=== PATIENT | male | born 1955 | race Caucasian/White ===

== ENCOUNTER → 2016-11-10 | Day surgery (SDC) | payer BC ==
[~2016-11-10] MED LIST: ACETAMINOPHEN 1000 MG/100 ML VIAL IV ONE; BUPIVACAINE/EPINEPHRINE 0.25% PF 10 ML VIAL ONE; KETOROLAC TROMETHAMINE 30 MG/ML (IVP) VIAL IV PUSH ONE; LACTATED RINGER'S 1000 ML INJ 1,000 ML ONE; LIDOCAINE 1.5%/EPINEPHrine 1:200,000 PF SOLN 30 ML AMP ONE; MIDAZOLAM HCL 2 MG/2 ML VIAL ONE; ONDANSETRON HCL 4 MG/2 ML VIAL IV PUSH ONE; PROPOFOL 200 MG/20 ML AMP IV ONE; SODIUM CHLORIDE 0.9% 250 ML ADDBAG IV ONE; SODIUM CHLORIDE 0.9% INJ 10 ML ONE; VANCOMYCIN HCL 1000 MG VIAL ONE; ceFAZolin INJ 1,000 MG VIAL ONE
--- NOTE | 2016-11-10 10:11 | MP ---
cc: ELINA REYES M.D. [facility] DATE OF SURGERY: 11/10/2016 PROCEDURE Right inguinal hernia repair with mesh. PREOPERATIVE DIAGNOSIS Symptomatic reducible right inguinal hernia. POSTOPERATIVE DIAGNOSIS Symptomatic indirect reducible right inguinal hernia. ANESTHESIA LMA. SURGEON Dr. Reyes. ESTIMATED BLOOD LOSS Less than 30 mL. FLUIDS 700 mL crystalloid. COMPLICATIONS None. DRAINS None. SPECIMEN None. PROCEDURE IN DETAIL The patient was seen in the holding area and the right side marked by the undersigned and confirmed by the patient. The patient was taken back to the operating room and placed on the operating table in the supine position. After an adequate level of laryngeal mask anesthesia was achieved, the right groin was shaved, prepped and draped. Time-out was taken confirming the correct patient, site and procedure to be performed. Skin and subcutaneous tissue was infiltrated with local anesthetic and an oblique incision made in the right groin. Dissection was carried down to the external oblique fascia where further subfascial injections were made with local anesthetic. The underlying tissue was swept free from the fascia and the spermatic cord structures were brought up on a [place] drain. Dissection was carried back to the internal ring. The hernia sac was reduced into the abdominal cavity. At this point the patient was noted to have simply an indirect inguinal hernia. The patient had a 3 x 6 inch piece of [employer] mesh brought up and placed into the defect. The mesh was transfixed to the pubic tubercle with 2-0 Prolene suture which was then run along the shelving edge of the inguinal ligament to complete the lateral edge of the repair. The mesh was slit longitudinally and trimmed to size to fit the defect. The mesh was then transfixed with interrupted 2-0 Prolene sutures medially. Care was taken to avoid the iliohypogastric nerve and place no sutures near this. When this was completed the medial leaf of mesh was brought over the lateral leaf and fixed at three places with 2-0 Prolene sutures. With hemostasis assured, the remaining local anesthetic including Marcaine with epinephrine was injected into the transversalis fascia and subcutaneous tissues. The external oblique fascia was closed with a running 3-0 Vicryl suture. The wound was reapproximated with interrupted 3-0 Vicryl suture and the skin closed with 5-0 PDS in a running subcuticular fashion. The wound was dressed with Telfa and Tegaderm. The patient was taken back to the recovery room in stable condition. He tolerated the procedure well. Sponge and needle and instrument counts were reported to be correct. MD МАРИНА Kirby/TLL /9:53 AM /10:03 AM
== END | disposition home or self-care (01) ==
LOC: ESDC 06:35
PROVIDERS: ATTEND Surgery Trauma Surgery
DX: K40.90 Unilateral inguinal hernia, without obstruction or gangrene, not specified as recurrent (principal)
CPT/HCPCS: 00830; 49505; C1781; J0131; J0690; J1885; J2250; J2405; J3010; J3370; J7120